=== PATIENT | female | born 1940 | race Caucasian/White ===

== ENCOUNTER → 2016-12-25 | Outpatient (CLI) | payer MEDICARE, OTHER ==
--- NOTE | 2016-12-25 11:39 | ECGEPIP ---
Stationary ECG Study [facility] Test Date: 2016-12-25 Pat Name: AUBREY TRIPATHI Department: Room: - Gender: F Account Manager B2B: YG : 1940 Requested By: Miguel Ford Order Number: [id number] Reading MD: Yolis Coreas Measurements Intervals [place] Rate: 76 P: 82 GA: 128 QRS: 51 QRSD: 82 T: -9 QT: 378 QTc: 426 Interpretive Statements SINUS RHYTHM ST T-WAVE ABNORMALITY NO PRIOR Electronically Signed On 12-25-2016 11:39:01 EST by Yolis Coreas
[2016-12-25 12:39] LABS: MEAN CORPUSCULAR HEMOGLOBIN 31.6 pg (27.0-33.0); MEAN CORPUSCULAR VOLUME 95.8 fl (80.0-96.0); RED CELL DISTRIBUTION WIDTH 12.5 % (11.5-14.5); WHITE BLOOD COUNT 4.6 K/mm3 (4.0-10.0)
--- NOTE | 2016-12-25 12:55 | REP ---
Chest two views HISTORY: Annual physical Comparison: 02/05/2012 The lungs are hyperinflated. The lungs are clear. The heart is normal in size. The pulmonary vasculature is normal in appearance. The bony structure is intact. IMPRESSION: No acute disease. Signed by Partha Mckinnon MD 12/25/2016 12:46 P
[2016-12-25 13:03] LABS: ALBUMIN 3.9 GM/DL (3.2-5.2); ALBUMIN/GLOBULIN RATIO 1.15 (1.00-1.93); ALKALINE PHOSPHATASE 66 U/L (45-117); ALT/SGPT 28 U/L (12-78); ANION GAP 7 MEQ/L (8-16); AST/SGOT 26 U/L (15-37); BILIRUBIN,TOTAL 0.5 MG/DL (0.2-1.0); BLOOD UREA NITROGEN 14 MG/DL (7-18); CALCIUM LEVEL 9.3 MG/DL (8.8-10.2); CARBON DIOXIDE LEVEL 33 MEQ/L (21-32); CHLORIDE LEVEL 104 MEQ/L (98-107); CHOLESTEROL LEVEL 181 MG/DL (<200); CREATININE FOR GFR 0.72 MG/DL (0.55-1.02); GLOMERULAR FILTRATION RATE > 60.0 (>39); GLUCOSE, FASTING 108 MG/DL (83-110); SODIUM LEVEL 144 MEQ/L (136-145); THYROXINE (T4) 14.3 UG/DL (4.5-12.0); TOTAL PROTEIN 7.3 GM/DL (6.4-8.2); TRIGLYCERIDES LEVEL 117 MG/DL (<150)
[2016-12-25 13:08] LABS: POTASSIUM SERUM 5.2 MEQ/L (3.5-5.1)
== END ==
LOC: M LAB 11:22
PROVIDERS: ATTEND Family Medicine
DX: I10 Essential (primary) hypertension (principal); E03.9 Hypothyroidism, unspecified

== ENCOUNTER → 2017-02-14 | Outpatient (CLI) | payer MEDICARE, OTHER ==
[2017-02-14 09:56] LABS: MEAN CORPUSCULAR HEMOGLOBIN 32.5 pg (27.0-33.0); MEAN CORPUSCULAR HGB CONC 32.8 g/dl (32.0-36.5); WHITE BLOOD COUNT 3.4 K/mm3 (4.0-10.0)
[2017-02-14 10:11] LABS: ALBUMIN 3.7 GM/DL (3.2-5.2); ALBUMIN/GLOBULIN RATIO 1.19 (1.00-1.93); ALKALINE PHOSPHATASE 57 U/L (45-117); ALT/SGPT 25 U/L (12-78); ANION GAP 7 MEQ/L (8-16); AST/SGOT 18 U/L (15-37); BILIRUBIN,TOTAL 0.7 MG/DL (0.2-1.0); BLOOD UREA NITROGEN 16 MG/DL (7-18); CALCIUM LEVEL 8.7 MG/DL (8.8-10.2); CARBON DIOXIDE LEVEL 33 MEQ/L (21-32); CHLORIDE LEVEL 103 MEQ/L (98-107); CHOLESTEROL LEVEL 179 MG/DL (<200); CREATININE FOR GFR 0.74 MG/DL (0.55-1.02); GLOMERULAR FILTRATION RATE > 60.0 (>39); GLUCOSE, FASTING 107 MG/DL (83-110); POTASSIUM SERUM 4.4 MEQ/L (3.5-5.1); SODIUM LEVEL 143 MEQ/L (136-145); TOTAL PROTEIN 6.8 GM/DL (6.4-8.2); TRIGLYCERIDES LEVEL 82 MG/DL (<150)
== END ==
LOC: M LAB 08:27
PROVIDERS: ATTEND Family Medicine
DX: R53.83 Other fatigue (principal); D64.9 Anemia, unspecified; Z79.899 Other long term (current) drug therapy

== ENCOUNTER → 2017-06-09 | Outpatient (CLI) | payer MEDICARE, OTHER ==
[~2017-06-09] VITALS: Ht 152.4 cm; Wt 42.6 kg
[~2017-06-09] MED LIST: CALTCHW5 PO; CARV3.12 PO; LIDOCAINE 2% INJ 100 MG/5 ML SDV (FOR ANES.) As Ordered ONE; NS 1,000 ML IV ONE; PRAV40TA2 PO; PROPOFOL 200 MG/20 ML VIAL As Ordered ONE; SYNT75TA PO; VITA-122 PO; VITA-182 PO
--- NOTE | 2017-06-09 13:56 | ROOR ---
Patient Name: Angelique Del Rosario Procedure Date: 06/09/2017 1:34 PM Date of : 1940 Age: 76 Room: [facility] Gender: Female Note Status: Finalized Procedure: Total Colonoscopy to cecum + Biopsy Polypectomy Indications: Colon cancer screening in patient at increased risk: Colorectal cancer in brother, Last colonoscopy: 2001 Providers: Jimmy Marcelo MD Referring MD: SOCORRO GREEN MD Requesting Provider: Medicines: Monitored Anesthesia Care Complications: No immediate complications. Procedure: Pre-Anesthesia Assessment: - The heart rate, respiratory rate, oxygen saturations, blood pressure, adequacy of pulmonary ventilation, and response to care were monitored throughout the procedure. The Colonoscope was introduced through the anus and advanced to the cecum, identified by appendiceal orifice and ileocecal valve. The colonoscopy was performed without difficulty. The patient tolerated the procedure well. The quality of the bowel preparation was excellent. Findings: The perianal and digital rectal examinations were normal. Non-bleeding internal hemorrhoids were found during retroflexion. The hemorrhoids were small and Grade I (internal hemorrhoids that do not prolapse). Scattered small-mouthed diverticula were found in the recto-sigmoid colon, sigmoid colon and descending colon. A small polyp was found at 35 cm proximal to the anus. The polyp was sessile. The polyp was removed with a cold biopsy forceps. Resection and retrieval were complete. The exam was otherwise without abnormality on direct and retroflexion views. Impression: - Non-bleeding internal hemorrhoids. - Diverticulosis in the recto-sigmoid colon, in the sigmoid colon and in the descending colon. - One small polyp at 35 cm proximal to the anus, removed with a cold biopsy forceps. Resected and retrieved. - The examination was otherwise normal on direct and retroflexion views. - The exam was otherwise normal to the cecum. Recommendation: - Patient has a contact number available for emergencies. The signs and symptoms of potential delayed complications were discussed with the patient. Return to normal activities tomorrow. Written discharge instructions were provided to the patient. - High fiber diet. - Continue present medications. - Await pathology results. - Discharge patient to home. - Repeat colonoscopy for symptoms only. - Telephone GI clinic for pathology results in 1 week. - Check Portal Online for Path Results.([email or web address]) - The findings and recommendations were discussed with the patient's family. Jimmy Marcelo MD Jimmy Marcelo MD 06/09/2017 1:56:02 PM This report has been signed electronically. Number of Addenda: 0 Note Initiated On: 06/09/2017 1:34 PM Estimated Blood Loss: Estimated blood loss: none.
[2017-06-09 13:57] VITALS: BP 98/61
== END | disposition home or self-care (01) ==
LOC: M OPP 11:44
PROVIDERS: ATTEND Internal Medicine Gastroenterology
DX: Z12.11 Encounter for screening for malignant neoplasm of colon (principal); D12.7 Benign neoplasm of rectosigmoid junction; K64.0 First degree hemorrhoids; K57.30 Diverticulosis of large intestine without perforation or abscess without bleeding; Z80.0 Family history of malignant neoplasm of digestive organs; I10 Essential (primary) hypertension; E78.5 Hyperlipidemia, unspecified; E03.9 Hypothyroidism, unspecified; K57.92 Diverticulitis of intestine, part unspecified, without perforation or abscess without bleeding; R21 Rash and other nonspecific skin eruption; Z79.899 Other long term (current) drug therapy; Z80.42 Family history of malignant neoplasm of prostate

== ENCOUNTER → 2018-07-30 | Outpatient (CLI) | payer MEDICARE, OTHER | LOC: M WHC 08:23 | DX: M81.0 Age-related osteoporosis without current pathological fracture (principal); Z78.0 Asymptomatic menopausal state | CPT/HCPCS: 77080 ==

== ENCOUNTER → 2019-02-18 | Outpatient (REF) | payer MEDICARE, OTHER ==
[~2019-02-18] MED LIST changes: -LIDOCAINE 2% INJ 100 MG/5 ML SDV (FOR ANES.) As Ordered ONE; -NS 1,000 ML IV ONE; -PROPOFOL 200 MG/20 ML VIAL As Ordered ONE
== END ==
LOC: M SFHCWAGY 11:35
PROVIDERS: ATTEND Nurse Practitioner Family
DX: Z12.4 Encounter for screening for malignant neoplasm of cervix (principal)

== ENCOUNTER 2020-12-20 14:57 | Emergency (ER) | payer MEDICARE, OTHER ==
[~2020-12-20] VITALS: Ht 152.4 cm; Wt 20.3 kg
--- OUTSIDE RECORDS SUMMARY | 2020-12-20 15:06 | CCD | Continuity of Care Document ---
Author Author Angelique GREEN M.D. Organization Unknown Address [address] [place] [id number] Phone [phone] Problems Active Problems Provider Date Essential hypertension Noble Green M.D. Onset: 2016 Hypothyroidism Noble Green M.D. Onset: 7 Hyperlipidemia Noble Green M.D. Onset: 7 Social History Type Date Description Comments Sex Unknown ETOH Use Denies alcohol use Tobacco Use Start: Unknown Patient has never smoked Recreational Drug Use Denies Drug Use Allergies, Adverse Reactions, Alerts Description No Known Drug Allergies Medications Active Medications SIG Qnty Indications Ordering Provide r Date Pravastatin Sodium 40mg Tablets Take 1 Tablet By Mouth Every Day 90tabs Noble Green M.D . 03/24/2017 Carvedilol 3.125mg Tablets Take 1 Tablet By Mouth Twice A Day 180tabs Noble Green M.D. 06/2017 Levothyroxine Sodium 75mcg Tablets Take 1 Tablet By Mouth Every Day 90tabs Noble Green M.D . 03/24/2017 Calcium + D3 [id number] Tablet s 1 by mouth qd Unknown Immunizations Description No Information Available Vital Signs Date Vital Result Comment 08/11/2020 9:30am BP Systolic 126 mmHg BP Diastolic 76 mmHg Body Temperature 98.4 F Heart Rate 72 /min Respiratory Rate 12 /min Height 59.50 inches 4'11.50" Weight 93.00 lb [place] Body Weight 100 lb BMI (Body Mass Index) 18.5 kg/m2 O2 % BldC Oximetry 96 % 09/21/2019 1:51pm BP Systolic 132 mmHg BP Diastolic 82 mmHg Body Temperature 98.0 F Heart Rate 66 /min Respiratory Rate 12 /min Height 59.50 inches 4'11.50" Weight 97.00 lb [place] Body Weight 100 lb BMI (Body Mass Index) 19.3 kg/m2 O2 % BldC Oximetry 96 % Results Test Acquired Date Facility Test Result H/L Range Note Laboratory test finding 08/11/2020 [facility] TSH 0.795 ulU/mL 0.60 - 4.8 CMP 08/11/2020 [facility] Glu 109 mg/dL 70 - 110 1 BUN 12 mg/dL 8 - 23 Creat 0.7 mg/dL 0.5 - 1.0 BUN/Creatinine Ratio 16.2 CALC Na 139 mmol/L 136 - 145 K 4.8 mmol/L 3.5 - 5.1 CL 101.5 mmol/L 98.0 - 107.0 Co2 27.6 mmol/L 22.0 - 29.0 CA 9.3 mg/dL 8.6 - 10.2 TP 6.5 g/dL Low 6.6 - 8.7 Alb 4.3 g/dL 3.4 - 4.8 A/G Ratio 1.9 CALC Globulin 2.2 CALC Alp 49.1 U/L 35 - 129 Alt (SGPT) 13 U/L 0 - 41 Ast (Sgot) 21 U/L 0 - 40 Tbili 0.50 mg/dL 0.0 - 1.2 Osmolality-Calculated 277.9 CALC Anion Gap 15 mmol/L eGFR 94 # Calc 2 eGFR Non-Afr. Cypriot 81 # Calc 3 Lipid Panel 08/11/2020 [facility] Chol 176 mg/dL 0 - 200 Trig 85 mg/dL 40 - 200 HDL 77 mg/dL High 45 - 65 LDL_C 82 Calc 75 - 129 Cho/HDL Ratio 2.3 Calc 1 CHRONIC KIDNEY DISEASE STAGI NG PER NKF: MALE GFR INTERPRETATION: 20-49 YRS: >60 mL/min Normal 50-59 YRS: >56 mL/min Normal 60-69 YRS: >49 mL/min Normal 70-79 YRS: >42 mL/min Normal 80 and above >35 mL/min Normal FEMALE GRF INTERPRETATION: 20-39 YRS: >60 mL/min Normal 40-49 YRS: >58 mL/min Normal 50-59 YRS: >51 mL/min Normal 60-69 YRS: >45 mL/min Normal 70-79 YRS: >39 mL/min Normal 80 and above >32 mL/min NormalCLASSIFICATION CHOLESTEROL FOR ADULTS CHILDREN/ADOLESCENTS* DESIRABLE: <200 MG/DL <170 MG/DL BORDER-LINE HIGH RISK: 200-239 MG/DL 170-199 MG/DL HIGH RISK: >240 MG/DL >200 MG/DL CLASS. FOR PRIMARY LDL CHOL PREVENTION: LDL CHOL-CHILD/ADOLESCENTS* DESIRABLE: <130 MG/DL <110 MG/DL BORDERLINE-HIGH RISK: 130-159 MG/DL 110-129 MG/DL HIGH RISK: >160 MG/DL >130 MG/DL *CHILDREN AND ADOLESCENTS REPRESENTS INDIVIDUALA AGED 2-19 YEARS EXCLUSIVE. 2 CKD-EPI 3 CKD-EPI Procedures Date Code Description Status 08/11/2020 38418 Removal Impacted Cerumen Irrigat ion/Lavage Unilateral Completed Medical Devices Description No Information Available Encounters Type Date Location Provider Dx Diagnosis Office Visit 11/21/2020 2:30p [facility] Noble Green M. D. Z01.810 Encounter for preprocedural cardiovascular examination Office Visit 08/11/2020 9:15a [facility] Noble Green M. D. I10 Essential (primary) hypertension E78.5 Hyperlipidemia, unspecified E03.9 Hypothyroidism, unspecified H61.21 Impacted cerumen, right ear Assessments Date Code Description Provider 11/21/2020 Z01.810 Encounter for preprocedural card iovascular examination Noble Green M.D. 08/11/2020 I10 Essential (primary) hypertension Noble Green M.D. 08/11/2020 E78.5 Hyperlipidemia, unspecified [facility] Noble coombs M.D. 08/11/2020 E03.9 Hypothyroidism, unspecified [facility] Noble coombs M.D. 08/11/2020 H61.21 Impacted cerumen, right ear [facility] Noble coombs M.D. Plan of Treatment Future Appointment(s):* 02/09/2021 9:15 am - Noble Green M.D. at [facility] Functional Status Description No Information Available Mental Status Description No Information Available Referrals Description No Information Available
--- OUTSIDE RECORDS SUMMARY | 2020-12-20 15:06 | CCD ---
Author Author [facility] Organization [facility] Address Unknown Phone Unavailable Care Team Providers Care Public Address Systems Mechanic Name Role Phone Matilda GREEN MD Unavailable Unavailable Matilda GREEN MD Unavailable Unavailable Matilda GREEN MD Unavailable Unavailable Matilda GREEN MD Unavailable Unavailable Matilda GREEN MD Unavailable Unavailable Matilda GREEN MD Unavailable Unavailable Matilda GREEN MD Unavailable Unavailable Matilda GREEN MD Unavailable Unavailable Matilda GREEN MD Unavailable Unavailable Matilda GREEN MD Unavailable Unavailable Matilda GREEN MD Unavailable Unavailable Matilda GREEN MD Unavailable Unavailable Matilda GREEN MD Unavailable Unavailable Matilda GREEN MD Unavailable Unavailable Matilda GREEN MD Unavailable Unavailable Matilda GREEN MD Unavailable Unavailable Matilda GREEN MD Unavailable Unavailable Matilda GREEN MD Unavailable Unavailable Matilda GREEN MD Unavailable Unavailable Matilda GREEN MD Unavailable Unavailable Matilda GREEN MD Unavailable Unavailable Matilda GREEN MD Unavailable Unavailable Matilda GREEN MD Unavailable Unavailable Matilda GREEN MD Unavailable Unavailable Matilda GREEN MD Unavailable Unavailable Matilda GREEN MD Unavailable Unavailable Matilda GREEN MD Unavailable Unavailable Matilda GREEN MD Unavailable Unavailable Matilda GREEN MD Unavailable Unavailable NORMA, H SOCORRO MD Unavailable Unavailable NORMA, H SOCORRO MD Unavailable Unavailable NORMA, H SOCORRO MD Unavailable Unavailable NORMA, H SOCORRO MD Unavailable Unavailable NORMA, H SOCORRO MD Unavailable Unavailable NORMA, H SOCORRO MD Unavailable Unavailable NORMA, H SOCORRO MD Unavailable Unavailable NORMA, H SOCORRO MD Unavailable Unavailable NORMA, H SOOCRRO MD Unavailable Unavailable NORMA, H SOCORRO MD Unavailable Unavailable NORMA, H SOCORRO MD Unavailable Unavailable NORMA, H SOCORRO MD Unavailable Unavailable NORMA, H SOCORRO MD Unavailable Unavailable NORMA, H SOCORRO MD Unavailable Unavailable NORMA, H SOCORRO MD Unavailable Unavailable NORMA, H SOCORRO MD Unavailable Unavailable NORMA, H SOCORRO MD Unavailable Unavailable NORMA, H SOCORRO MD Unavailable Unavailable NORMA, H SOCORRO MD Unavailable Unavailable NORMA, H SOCORRO MD Unavailable Unavailable NORMA, H SOCORRO MD Unavailable Unavailable NORMA, H SOCRORO MD Unavailable Unavailable NORMA, H SOCORRO MD Unavailable Unavailable NORMA, H SOCORRO MD Unavailable Unavailable NORMA, H SOCORRO MD Unavailable Unavailable NORMA, H SOCORRO MD Unavailable Unavailable NORMA, H SOCORRO MD Unavailable Unavailable NORMA, H SOCORRO MD Unavailable Unavailable NORMA, H SOCORRO MD Unavailable Unavailable NORMA, H SOCORRO MD Unavailable Unavailable NORMA, H SOCORRO MD Unavailable Unavailable NORMA, H SOCORRO MD Unavailable Unavailable NORMA, H SOCORRO MD Unavailable Unavailable NORMA, H SOCORRO MD Unavailable Unavailable NORMA, H SOCORRO MD Unavailable Unavailable NORMA, H SOCORRO MD Unavailable Unavailable NORMA, H SOCORRO MD Unavailable Unavailable NORMA, H SOCORRO MD Unavailable Unavailable NORMA, H SOCORRO MD Unavailable Unavailable NORMA, H SOCORRO MD Unavailable Unavailable NORMA, H SOCORRO MD Unavailable Unavailable NORMA, H SOCORRO MD Unavailable Unavailable NORMA, H SOCORRO MD Unavailable Unavailable NORMA, H SOCORRO MD Unavailable Unavailable NORMA, H SOCORRO MD Unavailable Unavailable NORMA, H SOCORRO MD Unavailable Unavailable NORMA, H SOCORRO MD Unavailable Unavailable Fany Thakkar MD Unavailable Unavailable Fany Thakkar MD Unavailable Unavailable Fany Thakkar MD Unavailable Unavailable Fany Thakkar MD Unavailable Unavailable Fany Thakkar MD Unavailable Unavailable Fany Thakkar MD Unavailable Unavailable Fany Thakkar MD Unavailable Unavailable Fany Thakkar MD Unavailable Unavailable Fany Thakkar MD Unavailable Unavailable Fany Thakkar MD Unavailable Unavailable Fany Thakkar MD Unavailable Unavailable Fany Thakkar MD Unavailable Unavailable Fany Thakkar MD Unavailable Unavailable Fany Thakkar MD Unavailable Unavailable Fany Thakkar MD Unavailable Unavailable Fany Thakkar MD Unavailable Unavailable Fany Thakkar MD Unavailable Unavailable Fany Thakkar MD Unavailable Unavailable Fany Thakkar MD Unavailable Unavailable Fany Thakkar MD Unavailable Unavailable Fany Thakkar MD Unavailable Unavailable Fany Thakkar MD Unavailable Unavailable Bijan, Noaman MD Unavailable Unavailable Bijan, Noaman MD Unavailable Unavailable Bijan, Noaman MD Unavailable Unavailable Bijan, Noaman MD Unavailable Unavailable Bijan, Noaman MD Unavailable Unavailable Bijan, Noaman MD Unavailable Unavailable Bijan, Noaman MD Unavailable Unavailable LETTIERE, A EVAN PA Unavailable Unavailable LETTIERE, A EVAN PA Unavailable Unavailable LETTIERE, A EVAN PA Unavailable Unavailable LETTIERE, A EVAN PA Unavailable Unavailable LETTIERE, A EVAN PA Unavailable Unavailable LETTIERE, A EVAN PA Unavailable Unavailable LETTIERE, A EVAN PA Unavailable Unavailable LETTIERE, A EVAN PA Unavailable Unavailable LETTIERE, A EVAN PA Unavailable Unavailable LETTIERE, A EVAN PA Unavailable Unavailable LETTIERE, A EVAN PA Unavailable Unavailable LETTIERE, A EVAN PA Unavailable Unavailable LETTIERE, A EVAN PA Unavailable Unavailable LETTIERE, A EVAN PA Unavailable Unavailable LETTIERE, A EVAN PA Unavailable Unavailable LETTIERE, A EVAN PA Unavailable Unavailable LETTIERE, A EVAN PA Unavailable Unavailable LETTIERE, A EVAN PA Unavailable Unavailable LETTIERE, A EVAN PA Unavailable Unavailable LETTIERE, A EVAN PA Unavailable Unavailable LETTIERE, A EVAN PA Unavailable Unavailable LETTIERE, A EVAN PA Unavailable Unavailable LETTIERE, A EVAN PA Unavailable Unavailable LETTIERE, A EVAN PA Unavailable Unavailable LETTIERE, A EVAN PA Unavailable Unavailable LETTIERE, A EVAN PA Unavailable Unavailable LETTIERE, A EVAN PA Unavailable Unavailable LETTIERE, A EVAN PA Unavailable Unavailable LETTIERE, A EVAN PA Unavailable Unavailable NO, PCP Unavailable Unavailable Re-disclosure Warning The records that you are about to access may contain information from federally-assisted alcohol or drug abuse programs. If such information is present, then the following federally mandated warning applies: This information has been disclosed to you from records protected by federal confidentiality rules (42 CFR part 2). The federal rules prohibit you from making any further disclosure of this information unless further disclosure is expressly permitted by the written consent of the person to whom it pertains or as otherwise permitted by 42 CFR part 2. A general authorization for the release of medical or other information is NOT sufficient for this purpose. The Federal rules restrict any use of the information to criminally investigate or prosecute any alcohol or drug abuse patient.The records that you are about to access may contain highly sensitive health information, the redisclosure of which is protected by Article 27-F of the [place] Public Health law. If you continue you may have access to information: Regarding HIV / AIDS; Provided by facilities licensed or operated by the [facility] Office of Mental Health; or Provided by the [facility] Office for People With Developmental Disabilities. If such information is present, then the following [facility] mandated warning applies: This information has been disclosed to you from confidential records which are protected by state law. State law prohibits you from making any further disclosure of this information without the specific written consent of the person to whom it pertains, or as otherwise permitted by law. Any unauthorized further disclosure in violation of state law may result in a fine or assisted sentence or both. A general authorization for the release of medical or other information is NOT sufficient authorization for further disc losure. Allergies and Adverse Reactions Type Description Substance Reaction Status Data Source(s ) No Known Drug Allergies No Known Drug Allergies Health [facility] No Known Environmental Allergies No Known Environmental Al lergies Health [facility] No Known Food Allergies No Known Food Allergies Health [facility] Family History Family Member Name Family Member Gender Family Member Status Date o f Status Description Data Source(s) Unknown Male Problem [facility] ([facility]) Unknown Unknown Problem [facility] ([facility], [facility]) mother,brother x 3 Encounters Encounter Providers Location Date Indications Data Source(s ) Outpatient Attender: Fany Thakkar MDConsultant: PCP NO 11/29/2020 09:45:00 AM EST - 11/29/2020 01:28:00 PM EST [facility] Patient discharged. Outpatient Attender: Fany Thakkar MDConsultant: PCP NO 11/22/2020 08:29:02 AM EST - 11/22/2020 11:20:00 AM EST [facility] Patient discharged. Outpatient Attender: SOCORRO Castillo Office 03/2021 01:30:00 PM EST [facility] ([facility] Outpatient Attender: SOCORRO Castillo Office 09:15:00 AM EDT [facility] ([facility] Outpatient Attender: EVAN cohn 11/30/2019 12:10:00 PM EST [facility] ([facility]) Medications Medication Brand Name Start Date Product Form Dose Route Admi nistrative Instructions Pharmacy Instructions Status Indications Reaction Description Data Source(s) Mupirocin 0.02 MG/MG Topical Ointment Mupirocin 11/30/2019 12:00:00 AM EST active MED[facility] ([facility], [facility]) Amoxicillin 875 MG Oral Tablet Amoxicillin 11/30/2019 12:00:00 AM EST active [facility] ([facility], [facility]) Insurance Providers Payer name Policy type / Coverage type Policy ID Covered republican ID Covered republican's relationship to salazar Policy Salazar Plan Information MEDICARE PART A -O/P [id number] 18 [id number] ANSI-Commercial [id number] ANSI-Medicare Part B [id number] MEDICARE [id number] SP [id number] R [facility] [id number] SP [id number] MEDICARE [id number] SP [id number] R O [id number] S [id number] MEDICARE C [id number] S [id number] D [employer] [id number] SP [id number] MEDICARE [id number] SP [id number] D [place] Medigap Part B [id number] Self [id number] Medicare [place] Medicare Primary [id number] Self [id number] [place] Medigap Part B [id number] Self [id number] [place] Primary [id number] Self [id number] POMCO [id number] SP [id number] [place] Medigap Part B Self Medicare [place] Medicare Primary Self [employer] PPO S [id number] S [id number] D [id number] Problems, Conditions, and Diagnoses Code Display Name Description Problem Type Effective Dates Data Source(s) 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 Diagnosis 11/29/2020 09:45:00 AM [facility] [id number] Family history of ischemic h eart disease and other diseases of the circulatory system Family history of ischemic heart disease and other diseases of the circulatory system Diagnosis 11/29/2020 09:45:00 AM [facility] E039 Hypothyroidism, unspecified Hypothyroidism, unspecifie d Diagnosis 11/29/2020 09:45:00 AM [facility] 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 Diagnosis 11/29/2020 09:45:00 AM [facility] I10 Essential (primary) hypertension Essential (primary) h ypertension Diagnosis 11/29/2020 09:45:00 AM [facility] H259 Unspecified age-related cataract Unspecified age -related cataract Diagnosis 11/29/2020 09:45:00 AM [facility] [id number] Encounter for other preprocedural examin ation Encounter for other preprocedural examination Diagnosis 11/22/2020 11:00:00 AM [facility] Surgeries/Procedures Procedure Description Date Indications Data Source(s) Removal Impacted Cerumen Irrigation/Lavage Unilateral 08/11/2020 12:00:00 AM EDT [facility] ([facility] Results ID Date Data Source [id number] 12/07/2020 10:46:00 [place] [address] OPERATIVE SUMMARYNAME: DEUCE BURGOS DATE OF : 1940TTENDING PHYS: Fany Thakkar MD DATE: 11/29/20 MR#: [id number] OF PROCEDURE: 11/29/2020REOPERATIVE DIAGNOSIS: Cataract, right eye.POSTOPERATIVE DIAGNOSIS: Cataract, right eyePROCEDURE: Phacoemulsification with cataract removal with the help of ORA, IOL lens useAUOOTO 19 diopters.SURGEON: Fany Thakkar MD.BILLING CLERK: None.COMPLICATIONS: None.INDICATIONS: Decreased vision interfering with daily activities.DETAILS OF PROCEDURE:Patient was brought to the operating room and laid in the supine position. The eye was prepped anddraped in a sterile fashion for ophthalmic surgery, following which a lid speculum was placed. Aside port incision was made and Viscoat was injected into the anterior chamber. A cornea incisionwas made with a 2.4 mm Keratome, followed by a capsulorhexis. Higher dissection was carried outwith a balanced salt solution followed by phacoemulsification in a [id number] methodwithin the capsular bag. Excess cortical material was then aspirated using irrigation and aspirationcannula. Visco was then placed into the capsular bag and intraocular lens was inserted aftermultiple ORA calculations were reviewed and power was chosen. Intraocular lens used wasAUOOTO power 19 diopter. Excess Viscoelastic was then aspirated. The wound was hydrated.Intracameral antibiotics and subtenon steroid injections were given. The speculum was removedand the patient was returned to the recovery room in stable condition.DD: Fany Thakkar MD 12/07/20 10:31 1 [place] [address] OPERATIVE SUMMARYNAME: DEUCE BURGOS DATE OF : 1940TTENDING PHYS: Fany Thakkar MD DATE: 11/29/20 MR#: [id number]: SSR 12/07/20 10:45DS: Fany Thakkar MD 12/18/20 13:41 2 Name Value Range Interpretation Code Description Data Maribel rce(s) Supporting Document(s) ID Date Data Source [id number] 11/24/2020 11:10:00 AM EST [facility] Name Value Range Interpretation Code Description Data Maribel rce(s) Supporting Document(s) SARS-CoV-2 (COVID-19) Negative [facility] This lab was ordered by [facility] and reported by [facility]. ID Date Data Source [id number] 08/11/2020 09:41:00 AM EDT [facility] ([facility] Name Value Range Interpretation Code Description Data Maribel rce(s) Supporting Document(s) Thyrotropin [Units/volume] in Serum or Plasma 0.795 ulU/mL 0.60-4.8 [facility] ([facility] ID Date Data Source [id number] 08/11/2020 09:40:00 AM EDT JOHN ([facility] Name Value Range Interpretation Code Description Data Maribel rce(s) Supporting Document(s) Trig 85 mg/dL 40-200 JOHN ([facility] CHRONIC KIDNEY DISEASE STAGING PER NKF: MALE GFR INTERPRETATION: 20-49 YRS: [...] DESIRABLE: <130 MG/DL <110 MG/DL BORDERLINE-HIGH RISK: 130- 159 MG/DL 110-129 MG/DL HIGH RISK: >160 MG/DL >130 MG/DL *CHILDREN AND ADOLESCENTS REPRESENTS INDIVIDUALA AGED 2-19 YEARS EXCLUSIVE. Chol 176 mg/dL 0-200 [facility] ([facility] CHRONIC KIDNEY DISEASE STAGING PER NKF: MALE GFR INTERPRETATION: 20-49 YRS: [...] DESIRABLE: <130 MG/DL <110 MG/DL BORDERLINE-HIGH RISK: 130- 159 MG/DL 110-129 MG/DL HIGH RISK: >160 MG/DL >130 MG/DL *CHILDREN AND ADOLESCENTS REPRESENTS INDIVIDUALA AGED 2-19 YEARS EXCLUSIVE. Cholesterol in HDL [Mass/volume] in Serum or Plasma 77 mg/dL 45-65 Above high normal [facility] ([facility] ) CHRONIC KIDNEY DISEASE STAGING PER NKF: MALE GFR INTERPRETATION: 20-49 YRS: [...] DESIRABLE: <130 MG/DL <110 MG/DL BORDERLINE-HIGH RISK: 130- 159 MG/DL 110-129 MG/DL HIGH RISK: >160 MG/DL >130 MG/DL *CHILDREN AND ADOLESCENTS REPRESENTS INDIVIDUALA AGED 2-19 YEARS EXCLUSIVE. LDL_C 82 Calc 75-129 [facility] CHRONIC KIDNEY DISEASE STAGING PER NKF: MALE GFR INTERPRETATION: 20-49 YRS: [...] DESIRABLE: <130 MG/DL <110 MG/DL BORDERLINE-HIGH RISK: 130- 159 MG/DL 110-129 MG/DL HIGH RISK: >160 MG/DL >130 MG/DL *CHILDREN AND ADOLESCENTS REPRESENTS INDIVIDUALA AGED 2-19 YEARS EXCLUSIVE. Cho/HDL Ratio 2.3 Calc [facility] ([facility] CHRONIC KIDNEY DISEASE STAGING PER NKF: MALE GFR INTERPRETATION: 20-49 YRS: [...] DESIRABLE: <130 MG/DL <110 MG/DL BORDERLINE-HIGH RISK: 130- 159 MG/DL 110-129 MG/DL HIGH RISK: >160 MG/DL >130 MG/DL *CHILDREN AND ADOLESCENTS REPRESENTS INDIVIDUALA AGED 2-19 YEARS EXCLUSIVE. ID Date Data Source [id number] 08/11/2020 09:40:00 AM EDT [facility] ([facility] Name Value Range Interpretation Code Description Data Maribel rce(s) Supporting Document(s) Creat 0.7 mg/dL 0.5-1.0 JOHN ([facility] CHRONIC KIDNEY DISEASE STAGING PER NKF: MALE GFR INTERPRETATION: 20-49 YRS: [...] DESIRABLE: <130 MG/DL <110 MG/DL BORDERLINE-HIGH RISK: 130- 159 MG/DL 110-129 MG/DL HIGH RISK: >160 MG/DL >130 MG/DL *CHILDREN AND ADOLESCENTS REPRESENTS INDIVIDUALA AGED 2-19 YEARS EXCLUSIVE. Glu 109 mg/dL 70-110 JOHN ([facility] CHRONIC KIDNEY DISEASE STAGING PER NKF: MALE GFR INTERPRETATION: 20-49 YRS: [...] DESIRABLE: <130 MG/DL <110 MG/DL BORDERLINE-HIGH RISK: 130- 159 MG/DL 110-129 MG/DL HIGH RISK: >160 MG/DL >130 MG/DL *CHILDREN AND ADOLESCENTS REPRESENTS INDIVIDUALA AGED 2-19 YEARS EXCLUSIVE. BUN 12 mg/dL 8-23 [facility] CHRONIC KIDNEY DISEASE STAGING PER NKF: MALE GFR INTERPRETATION: 20-49 YRS: [...] DESIRABLE: <130 MG/DL <110 MG/DL BORDERLINE-HIGH RISK: 130- 159 MG/DL 110-129 MG/DL HIGH RISK: >160 MG/DL >130 MG/DL *CHILDREN AND ADOLESCENTS REPRESENTS INDIVIDUALA AGED 2-19 YEARS EXCLUSIVE. Na 139 mmol/L 136-145 [facility] ([facility] CHRONIC KIDNEY DISEASE STAGING PER NKF: MALE GFR INTERPRETATION: 20-49 YRS: [...] DESIRABLE: <130 MG/DL <110 MG/DL BORDERLINE-HIGH RISK: 130- 159 MG/DL 110-129 MG/DL HIGH RISK: >160 MG/DL >130 MG/DL *CHILDREN AND ADOLESCENTS REPRESENTS INDIVIDUALA AGED 2-19 YEARS EXCLUSIVE. K 4.8 mmol/L 3.5-5.1 [facility] CHRONIC KIDNEY DISEASE STAGING PER NKF: MALE GFR INTERPRETATION: 20-49 YRS: [...] DESIRABLE: <130 MG/DL <110 MG/DL BORDERLINE-HIGH RISK: 130- 159 MG/DL 110-129 MG/DL HIGH RISK: >160 MG/DL >130 MG/DL *CHILDREN AND ADOLESCENTS REPRESENTS INDIVIDUALA AGED 2-19 YEARS EXCLUSIVE. BUN/Creatinine Ratio 16.2 CALC [facility] ([facility] CHRONIC KIDNEY DISEASE STAGING PER NKF: MALE GFR INTERPRETATION: 20-49 YRS: [...] DESIRABLE: <130 MG/DL <110 MG/DL BORDERLINE-HIGH RISK: 130- 159 MG/DL 110-129 MG/DL HIGH RISK: >160 MG/DL >130 MG/DL *CHILDREN AND ADOLESCENTS REPRESENTS INDIVIDUALA AGED 2-19 YEARS EXCLUSIVE. CA 9.3 mg/dL 8.6-10.2 [facility] ([facility] CHRONIC KIDNEY DISEASE STAGING PER NKF: MALE GFR INTERPRETATION: 20-49 YRS: [...] DESIRABLE: <130 MG/DL <110 MG/DL BORDERLINE-HIGH RISK: 130- 159 MG/DL 110-129 MG/DL HIGH RISK: >160 MG/DL >130 MG/DL *CHILDREN AND ADOLESCENTS REPRESENTS INDIVIDUALA AGED 2-19 YEARS EXCLUSIVE. CL 101.5 mmol/L 98.0-107.0 [facility] CHRONIC KIDNEY DISEASE STAGING PER NKF: MALE GFR INTERPRETATION: 20-49 YRS: [...] DESIRABLE: <130 MG/DL <110 MG/DL BORDERLINE-HIGH RISK: 130- 159 MG/DL 110-129 MG/DL HIGH RISK: >160 MG/DL >130 MG/DL *CHILDREN AND ADOLESCENTS REPRESENTS INDIVIDUALA AGED 2-19 YEARS EXCLUSIVE. Co2 27.6 mmol/L 22.0-29.0 [facility] ([facility] CHRONIC KIDNEY DISEASE STAGING PER NKF: MALE GFR INTERPRETATION: 20-49 YRS: [...] DESIRABLE: <130 MG/DL <110 MG/DL BORDERLINE-HIGH RISK: 130- 159 MG/DL 110-129 MG/DL HIGH RISK: >160 MG/DL >130 MG/DL *CHILDREN AND ADOLESCENTS REPRESENTS INDIVIDUALA AGED 2-19 YEARS EXCLUSIVE. TP 6.5 g/dL 6.6-8.7 Below low normal [facility] ( [facility] CHRONIC KIDNEY DISEASE STAGING PER NKF: MALE GFR INTERPRETATION: 20-49 YRS: [...] DESIRABLE: <130 MG/DL <110 MG/DL BORDERLINE-HIGH RISK: 130- 159 MG/DL 110-129 MG/DL HIGH RISK: >160 MG/DL >130 MG/DL *CHILDREN AND ADOLESCENTS REPRESENTS INDIVIDUALA AGED 2-19 YEARS EXCLUSIVE. A/G Ratio 1.9 CALC [facility] ([facility] CHRONIC KIDNEY DISEASE STAGING PER NKF: MALE GFR INTERPRETATION: 20-49 YRS: [...] DESIRABLE: <130 MG/DL <110 MG/DL BORDERLINE-HIGH RISK: 130- 159 MG/DL 110-129 MG/DL HIGH RISK: >160 MG/DL >130 MG/DL *CHILDREN AND ADOLESCENTS REPRESENTS INDIVIDUALA AGED 2-19 YEARS EXCLUSIVE. Alb 4.3 g/dL 3.4-4.8 [facility] ([facility] CHRONIC KIDNEY DISEASE STAGING PER NKF: MALE GFR INTERPRETATION: 20-49 YRS: [...] DESIRABLE: <130 MG/DL <110 MG/DL BORDERLINE-HIGH RISK: 130- 159 MG/DL 110-129 MG/DL HIGH RISK: >160 MG/DL >130 MG/DL *CHILDREN AND ADOLESCENTS REPRESENTS INDIVIDUALA AGED 2-19 YEARS EXCLUSIVE. Globulin 2.2 CALC [facility] ([facility] CHRONIC KIDNEY DISEASE STAGING PER NKF: MALE GFR INTERPRETATION: 20-49 YRS: [...] DESIRABLE: <130 MG/DL <110 MG/DL BORDERLINE-HIGH RISK: 130- 159 MG/DL 110-129 MG/DL HIGH RISK: >160 MG/DL >130 MG/DL *CHILDREN AND ADOLESCENTS REPRESENTS INDIVIDUALA AGED 2-19 YEARS EXCLUSIVE. Ast (Sgot) 21 U/L 0-40 [facility] ([facility] CHRONIC KIDNEY DISEASE STAGING PER NKF: MALE GFR INTERPRETATION: 20-49 YRS: [...] DESIRABLE: <130 MG/DL <110 MG/DL BORDERLINE-HIGH RISK: 130- 159 MG/DL 110-129 MG/DL HIGH RISK: >160 MG/DL >130 MG/DL *CHILDREN AND ADOLESCENTS REPRESENTS INDIVIDUALA AGED 2-19 YEARS EXCLUSIVE. Alp 49.1 U/L 35-129 [facility] CHRONIC KIDNEY DISEASE STAGING PER NKF: MALE GFR INTERPRETATION: 20-49 YRS: [...] DESIRABLE: <130 MG/DL <110 MG/DL BORDERLINE-HIGH RISK: 130- 159 MG/DL 110-129 MG/DL HIGH RISK: >160 MG/DL >130 MG/DL *CHILDREN AND ADOLESCENTS REPRESENTS INDIVIDUALA AGED 2-19 YEARS EXCLUSIVE. Alt (SGPT) 13 U/L 0-41 [facility] CHRONIC KIDNEY DISEASE STAGING PER NKF: MALE GFR INTERPRETATION: 20-49 YRS: [...] DESIRABLE: <130 MG/DL <110 MG/DL BORDERLINE-HIGH RISK: 130- 159 MG/DL 110-129 MG/DL HIGH RISK: >160 MG/DL >130 MG/DL *CHILDREN AND ADOLESCENTS REPRESENTS INDIVIDUALA AGED 2-19 YEARS EXCLUSIVE. Anion Gap 15 mmol/L [facility] CHRONIC KIDNEY DISEASE STAGING PER NKF: MALE GFR INTERPRETATION: 20-49 YRS: [...] DESIRABLE: <130 MG/DL <110 MG/DL BORDERLINE-HIGH RISK: 130- 159 MG/DL 110-129 MG/DL HIGH RISK: >160 MG/DL >130 MG/DL *CHILDREN AND ADOLESCENTS REPRESENTS INDIVIDUALA AGED 2-19 YEARS EXCLUSIVE. Tbili 0.50 mg/dL 0.0-1.2 [facility] ([facility] CHRONIC KIDNEY DISEASE STAGING PER NKF: MALE GFR INTERPRETATION: 20-49 YRS: [...] DESIRABLE: <130 MG/DL <110 MG/DL BORDERLINE-HIGH RISK: 130- 159 MG/DL 110-129 MG/DL HIGH RISK: >160 MG/DL >130 MG/DL *CHILDREN AND ADOLESCENTS REPRESENTS INDIVIDUALA AGED 2-19 YEARS EXCLUSIVE. Osmolality-Calculated 277.9 CALC [facility] ([facility] CHRONIC KIDNEY DISEASE STAGING PER NKF: MALE GFR INTERPRETATION: 20-49 YRS: [...] DESIRABLE: <130 MG/DL <110 MG/DL BORDERLINE-HIGH RISK: 130- 159 MG/DL 110-129 MG/DL HIGH RISK: >160 MG/DL >130 MG/DL *CHILDREN AND ADOLESCENTS REPRESENTS INDIVIDUALA AGED 2-19 YEARS EXCLUSIVE. eGFR Non-Afr. Macedonian 81 # [facility] ([facility] CHRONIC KIDNEY DISEASE STAGING PER NKF: MALE GFR INTERPRETATION: 20-49 YRS: [...] DESIRABLE: <130 MG/DL <110 MG/DL BORDERLINE-HIGH RISK: 130- 159 MG/DL 110-129 MG/DL HIGH RISK: >160 MG/DL >130 MG/DL *CHILDREN AND ADOLESCENTS REPRESENTS INDIVIDUALA AGED 2-19 YEARS EXCLUSIVE. eGFR 94 # JOHN ( [facility] CHRONIC KIDNEY DISEASE STAGING PER NKF: MALE GFR INTERPRETATION: 20-49 YRS: [...] DESIRABLE: <130 MG/DL <110 MG/DL BORDERLINE-HIGH RISK: 130- 159 MG/DL 110-129 MG/DL HIGH RISK: >160 MG/DL >130 MG/DL *CHILDREN AND ADOLESCENTS REPRESENTS INDIVIDUALA AGED 2-19 YEARS EXCLUSIVE. Procedure Vital Signs ID Date Data Source UNK Name Value Range Interpretation Code Description Data Source(s) Oxygen saturation in Arterial blood by Pulse oximetry 95 % 95 % JOHN ([facility] Body mass index (BMI) [Ratio] 19.2 kg/m2 19.2 k g/m2 MEDGRAEME ([facility] [place] body weight 100 [lb_av] 100 [lb_av] MEDEN T ([facility] Body weight 96.50 [lb_av] 96.50 [lb_av] MEDENT ([facility] Body height 59.50 [in_i] 59.50 [in_i] MEDENT ([facility] 4'11.50" Respiratory rate 12 /min 12 /min MEDENT ( [facility] Heart rate 54 /min 54 /min MEDENT ([facility] Body temperature 98.4 [degF] 98.4 [degF] MEDENT ([facility] Diastolic blood pressure 78 mm[Hg] 78 mm[Hg] MEDENT ([facility] Systolic blood pressure 122 mm[Hg] 122 mm[Hg] M EDENT ([facility] Oxygen saturation in Arterial blood by Pulse oximetry 96 % 96 % MEDENT ([facility] Body mass index (BMI) [Ratio] 18.5 kg/m2 18.5 k g/m2 MEDENT ([facility] [place] body weight 100 [lb_av] 100 [lb_av] MEDEN T ([facility] Body weight 93.00 [lb_av] 93.00 [lb_av] MEDENT ([facility] Body height 59.50 [in_i] 59.50 [in_i] MEDENT ([facility] 4'11.50" Respiratory rate 12 /min 12 /min MEDENT ( [facility] Heart rate 72 /min 72 /min MEDENT ([facility] Body temperature 98.4 [degF] 98.4 [degF] MEDENT ([facility] Diastolic blood pressure 76 mm[Hg] 76 mm[Hg] MEDENT ([facility] Systolic blood pressure 126 mm[Hg] 126 mm[Hg] M EDENT ([facility] Body mass index (BMI) [Ratio] 19.5 kg/m2 19.5 k g/m2 [facility] ([facility], [facility]) Body height 60 [in_i] 60 [in_i] [facility] ([facility], [facility]) 5'0" Body weight 100.00 [lb_av] 100.00 [lb_av] MEDEN T ([facility], [facility]) Body temperature 97.9 [degF] 97.9 [degF] [facility] ([facility], [facility]) Oxygen saturation in Arterial blood by Pulse oximetry 98 % 98 % [facility] ([facility], [facility]) Respiratory rate 17 /min 17 /min [facility] ( [facility], [facility]) Heart rate 76 /min 76 /min [facility] ([facility], [facility]) Diastolic blood pressure 86 mm[Hg] 86 mm[Hg] [facility] ([facility], [facility]) Systolic blood pressure 130 mm[Hg] 130 mm[Hg] M [facility] ([facility], [facility]) ID Date Data Source [id number] 12/18/2020 01:42:02 PM EST Health System Name Value Range Interpretation Code Description Data Source(s) WEIGHT RECORDED 97.00 pounds 097.00 pounds [facility] Height 60 Inches 060 Inches [facility]
--- OUTSIDE RECORDS SUMMARY | 2020-12-20 15:06 | CCD | Continuity of Care Document ---
Author Author Angelique GREEN M.D. Organization Unknown Address [address] [place], [place] [address] Phone [phone] Problems Active Problems Provider Date Essential hypertension [...] Green M.D . 03/24/2017 Calcium + D3 [id number] Tablet s 1 by mouth qd Unknown Immunizations Description No Information Available Vital Signs Date Vital Result Comment 11/21/2020 2:41pm BP Systolic 122 mmHg BP Diastolic 78 mmHg Body Temperature 98.4 F Heart Rate 54 /min Respiratory Rate 12 /min Height 59.50 inches 4'11.50" Weight 96.50 lb [place] Body Weight 100 lb BMI (Body Mass Index) 19.2 kg/m2 O2 % BldC Oximetry 95 % 08/11/2020 9:30am BP Systolic 126 mmHg BP Diastolic 76 mmHg Body Temperature 98.4 F Heart Rate 72 /min Respiratory Rate 12 /min Height 59.50 inches 4'11.50" Weight 93.00 lb [place] Body Weight 100 lb BMI (Body Mass [...] eGFR 94 # Calc 2 eGFR Non-Afr. Citizen Of [place] 81 # Calc 3 Lipid Panel 08/11/2020 [...] CKD-EPI Procedures Date Code Description Status 08/11/2020 04438 Removal Impacted Cerumen Irrigat ion/Lavage Unilateral Completed Medical Devices Description No Information Available Encounters Type Date Location Provider Dx Diagnosis Office Visit 11/21/2020 2:30p [facility] Noble Green M. D. Z01.810 Encounter for preprocedural cardiovascular examination Office Visit 08/11/2020 9:15a [facility] Noble Green M. D. I10 Essential (primary) hypertension E78.5 Hyperlipidemia, unspecified E03.9 Hypothyroidism, unspecified H61.21 Impacted cerumen, right ear Assessments Date Code Description Provider 11/21/2020 Z01.810 Encounter for preprocedural card iovascular examination Noble Green M.D. 08/11/2020 I10 Essential (primary) hypertension Noble Green M.D. 08/11/2020 E78.5 Hyperlipidemia, unspecified [facility] Noble coombs M.D. 08/11/2020 E03.9 Hypothyroidism, unspecified [facility] Noble coombs M.D. 08/11/2020 H61.21 Impacted cerumen, right ear [facility] Noble coombs M.D. Plan of Treatment Future Appointment(s):* 02/09/2021 9:15 am - Noble Green M.D. at [facility] Functional Status Description No Information Available Mental Status Description No Information Available Referrals Description No Information Available
[2020-12-20] MEDS ORDERED: BOOSTRIX/ADACEL VACCINE (DIPHTH/PERTUSS/ACELL/TETANUS) 0.5ML SYR IM ONE (15:30)
--- OUTSIDE RECORDS SUMMARY | 2020-12-20 15:48 | CCD ---
Author Author [facility] Organization [facility] Address Unknown Phone Unavailable Care Team Providers Care Mixer Blender Name Role Phone Matilda GREEN MD Unavailable [...] Unavailable Fany Thakkar MD Unavailable Unavailable Fany Tahkkar MD Unavailable Unavailable Fany Thakkar MD Unavailable Unavailable Fany Thakkar MD Unavailable Unavailable Fany Thakkar MD Unavailable Unavailable Fany Thakkar MD Unavailable Unavailable Fany Thakkar MD Unavailable Unavailable Fany Thakkar MD Unavailable Unavailable Fany Thakkar MD Unavailable Unavailable Fany Thakkar MD Unavailable Unavailable Fany Thakkar MD Unavailable Unavailable Fany Thakkar MD Unavailable Unavailable Fany Thakakr MD Unavailable Unavailable Fany Thakkar MD Unavailable [...] is protected by Article 27-F of the [place] Public Health law. If you continue you may have access to information: Regarding HIV / AIDS; Provided by facilities licensed or operated by the [facility] Office of Mental Health; or Provided by the [facility] Office for People With Developmental Disabilities. If such information is present, then the following [facility] mandated warning applies: This information has [...] law may result in a fine or longterm sentence or both. A general authorization for the release of medical or other information is NOT sufficient authorization for further disc losure. Allergies and Adverse Reactions Type Description Substance Reaction Status Data Source(s ) No Known Drug Allergies No Known Drug Allergies [facility] No Known Environmental Allergies No Known Environmental Al lergies [facility] No Known Food Allergies No Known Food Allergies [facility] Family History Family Member Name Family Member Gender Family Member Status Date o f Status Description Data Source(s) Unknown Male Problem [facility] Unknown Unknown Problem [facility] ([facility]) mother,brother x 3 Encounters Encounter Providers Location Date Indications Data Source(s ) Outpatient Attender: Fany Thakkar MDConsultant: PCP NO 11/29/2020 09:45:00 AM EST - 11/29/2020 01:28:00 PM EST [facility] Patient discharged. Outpatient Attender: Fany Thakkar MDConsultant: PCP NO 11/22/2020 08:29:02 AM EST - 11/22/2020 11:20:00 AM EST [facility] Patient discharged. Outpatient Attender: SOCORRO Castillo Office 03/2021 01:30:00 PM EST [facility] ([facility] Outpatient Attender: SOCORRO Castillo Office 09:15:00 AM EDT MEDENT ([facility] Outpatient Attender: EVAN cohn 11/30/2019 12:10:00 PM EST MEDENT ([facility]) Medications Medication Brand Name Start Date Product Form Dose Route Admi nistrative Instructions Pharmacy Instructions Status Indications Reaction Description Data Source(s) Mupirocin 0.02 MG/MG Topical Ointment Mupirocin 11/30/2019 12:00:00 AM EST active MEDENT ([facility]) Amoxicillin 875 MG Oral Tablet Amoxicillin 11/30/2019 12:00:00 AM EST active MEDENT ([facility]) Insurance Providers Payer name Policy type / Coverage type Policy ID Covered libertarian ID Covered libertarian's relationship to salazar Policy Salazar Plan Information MEDICARE PART A -O/P [id number] 18 [id number] ANSI-Commercial [id number] ANSI-Medicare Part B [id number] MEDICARE [id number] SP [id number] R [facility] [id number] SP [id number] MEDICARE [id number] SP [id number] R O [id number] S [id number] MEDICARE C [id number] S [id number] D [place] [id number] SP [id number] MEDICARE [id number] SP [id number] D [place] Medigap Part B [id number] Self [id number] Medicare [place] Gov[place] Serv[place] Medicare Primary [id number] Self [id number] [place] Medigap Part B [id number] Self [id number] [place] Primary [id number] Self [id number] [place] [id number] SP [id number] [place] Medigap Part B Self Medicare [place] Primary Self [place] PPO S [id number] S [id number] D [id number] Problems, Conditions, and Diagnoses Code Display Name Description Problem Type Effective Dates Data Source(s) 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 O ther fpc (current) drug therapy Diagnosis 11/29/2020 09:45:00 AM [facility] Z8249 Family history of ischemic h eart disease and other diseases of the circulatory system Family history of ischemic heart disease and other diseases of the circulatory system Diagnosis 11/29/2020 09:45:00 AM [facility] E039 Hypothyroidism, unspecified Hypothyroidism, unspecifie d Diagnosis 11/29/2020 09:45:00 AM [facility] 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 Diagnosis 11/29/2020 09:45:00 AM [facility] I10 Essential (primary) hypertension Essential (primary) h ypertension Diagnosis 11/29/2020 09:45:00 AM [facility] H259 Unspecified age-related cataract Unspecified age -related cataract Diagnosis 11/29/2020 09:45:00 AM [facility] [id number] Encounter for other preprocedural examin ation Encounter for other preprocedural examination Diagnosis 11/22/2020 11:00:00 AM [facility] Surgeries/Procedures Procedure Description Date Indications Data Source(s) Removal Impacted Cerumen Irrigation/Lavage Unilateral 08/11/2020 12:00:00 AM EDT MEDGRAEME ([facility] Results ID Date Data Source [id number] 12/07/2020 10:46:00 [place] [address] OPERATIVE SUMMARYNAME: DEUCE BURGOS DATE OF : 1940TTENDING PHYS: Fany Thakkar MD DATE: 11/29/20 MR#: [id number] OF PROCEDURE: 11/29/2020REOPERATIVE DIAGNOSIS: Cataract, right eye.POSTOPERATIVE DIAGNOSIS: Cataract, right eyePROCEDURE: Phacoemulsification with cataract removal with the help of ORA, IOL lens useAUOOTO 19 diopters.SURGEON: Fany Thakkar MD.RACING BOARD MARKER: None.COMPLICATIONS: None.INDICATIONS: Decreased vision interfering with daily [...] salt solution followed by phacoemulsification in a [id number] methodwithin the capsular bag. Excess cortical material [...] condition.DD: Fany Thakkar MD 12/07/20 10:31 1 [place] [address] OPERATIVE SUMMARYNAME: DEUCE BURGOS DATE OF : 1940TTENDING PHYS: Fany Thakkar MD DATE: 11/29/20 MR#: [id number]: SSR 12/07/20 10:45DS: Fany Thakkar MD 12/18/20 13:41 2 Name Value Range Interpretation Code Description Data Maribel rce(s) Supporting Document(s) ID Date Data Source [id number] 11/24/2020 11:10:00 AM EST [facility] Name Value Range Interpretation Code Description Data Maribel rce(s) Supporting Document(s) SARS-CoV-2 (COVID-19) Negative [facility] This lab was ordered by [facility] and reported by [facility]. ID Date Data Source [id number] 08/11/2020 09:41:00 AM EDT MEDENT ([facility] Name Value Range Interpretation Code Description Data Maribel rce(s) Supporting Document(s) Thyrotropin [Units/volume] in Serum or Plasma 0.795 ulU/mL 0.60-4.8 MEDENT ([facility] ID Date Data Source [id number] 08/11/2020 09:40:00 AM EDT JOHN ([facility] Name Value Range Interpretation Code Description Data Maribel rce(s) Supporting Document(s) Trig 85 mg/dL 40-200 JOHN (Count includes the [facility] CHRONIC KIDNEY DISEASE STAGING [...] YEARS EXCLUSIVE. Chol 176 mg/dL 0-200 MEDGRAEME ([facility] the [facility] CHRONIC KIDNEY DISEASE STAGING [...] YEARS EXCLUSIVE. Cho/HDL Ratio 2.3 Calc MEDENT ([facility] CHRONIC KIDNEY DISEASE STAGING PER [...] 2-19 YEARS EXCLUSIVE. ID Date Data Source [id number] 08/11/2020 09:40:00 AM EDT MEDGRAEME ([facility] Name Value Range [...] YEARS EXCLUSIVE. K 4.8 mmol/L 3.5-5.1 [facility] CHRONIC KIDNEY DISEASE STAGING [...] YEARS EXCLUSIVE. BUN/Creatinine Ratio 16.2 CALC MEDENT ([facility] CHRONIC KIDNEY DISEASE STAGING [...] 2-19 YEARS EXCLUSIVE. CL 101.5 mmol/L 98.0-107.0 [facility] CHRONIC KIDNEY DISEASE STAGING PER [...] 2-19 YEARS EXCLUSIVE. Co2 27.6 mmol/L 22.0-29.0 [facility] ([facility] CHRONIC KIDNEY DISEASE STAGING PER [...] YEARS EXCLUSIVE. Alt (SGPT) 13 U/L 0-41 [facility] CHRONIC KIDNEY DISEASE STAGING [...] INDIVIDUALA AGED 2-19 YEARS EXCLUSIVE. eGFR Non-Afr. [place] Islander 81 # MEDENT ([facility] [...] k g/m2 MEDGRAEME ([facility] [place] body weight 100 [lb_av] 100 [lb_av] MEDEN T ([facility] Body weight 96.50 [lb_av] 96.50 [lb_av] MEDENT ([facility] Body height 59.50 [in_i] 59.50 [in_i] MEDENT ([facility] 4'11.50" Respiratory rate 12 /min 12 /min MED[facility] ( [facility] Heart rate 54 /min 54 /min MED[facility] ([facility] Body temperature 98.4 [degF] 98.4 [degF] [facility] ([facility] Diastolic blood pressure 78 mm[Hg] 78 mm[Hg] [facility] ([facility] Systolic blood pressure 122 mm[Hg] 122 mm[Hg] M EDENT ([facility] Oxygen saturation in Arterial blood by Pulse oximetry 96 % 96 % [facility] ([facility] Body mass index (BMI) [Ratio] 18.5 kg/m2 18.5 k g/m2 [facility] ([facility] [place] body weight 100 [lb_av] 100 [lb_av] MEDEN T ([facility] Body weight 93.00 [lb_av] 93.00 [lb_av] [facility] ([facility] Body height 59.50 [in_i] 59.50 [in_i] MEDENT ([facility] 4'11.50" Respiratory rate 12 /min 12 /min [facility] ( [facility] Heart rate 72 /min 72 /min MED[facility] ([facility] Body temperature 98.4 [degF] 98.4 [degF] [facility] ([facility] Diastolic blood pressure 76 mm[Hg] 76 mm[Hg] [facility] ([facility] Systolic blood pressure 126 mm[Hg] 126 mm[Hg] M EDENT ([facility] Body mass index (BMI) [Ratio] 19.5 kg/m2 19.5 k g/m2 [facility] ([facility]) Body height 60 [in_i] 60 [in_i] [facility] ([facility], [facility]) 5'0" Body weight 100.00 [lb_av] 100.00 [lb_av] MEDEN T ([facility]) Body temperature 97.9 [degF] 97.9 [degF] [facility] ([facility]) Oxygen saturation in Arterial blood by Pulse oximetry 98 % 98 % [facility] ([facility]) Respiratory rate 17 /min 17 /min [facility] ( [facility]) Heart rate 76 /min 76 /min [facility] ([facility]) Diastolic blood pressure 86 mm[Hg] 86 mm[Hg] [facility] ([facility]) Systolic blood pressure 130 mm[Hg] 130 mm[Hg] M [facility] ([facility]) ID Date Data Source [id number] 12/18/2020 01:42:02 PM EST [facility] Name Value Range Interpretation Code Description Data Source(s) WEIGHT RECORDED 97.00 pounds 097.00 pounds [facility] Height 60 Inches 060 Inches [facility]
[2020-12-20 16:02] VITALS: BP 140/82
--- NOTE | 2020-12-20 16:23 | REP ---
INDICATION: head injury COMPARISON: None. TECHNIQUE: Axial noncontrast images from the skull base to the thoracic inlet with coronal reformations. This CT examination was performed using the following dose reduction techniques: Automated exposure control, adjustment of mA and/or kv according to the patient's size, and use of iterative reconstruction technique. FINDINGS: Age-related atrophy and microvascular ischemic changes are appreciated. The ventricles and sulci are symmetric. De La Rosa-white differentiation is maintained. There is no evidence for acute intracranial hemorrhage, mass/mass effect, pathology or infarction. No extra-axial fluid collection. Calvarium is intact. Paranasal sinuses and mastoid air cells are clear. IMPRESSION: Age related atrophy and microvascular ischemic changes. No acute intracranial hemorrhage, infarction, or mass/mass effect. No evidence for trauma/injury. <Electronically signed by Bradley Vasquez > 12/20/20 [id number]
--- NOTE | 2020-12-20 16:25 | REP ---
INDICATION: head injury COMPARISON: None. TECHNIQUE: Axial noncontrast images from the skull base to the thoracic inlet with coronal and sagittal re-formations This CT examination was performed using the following dose reduction techniques: Automated exposure control, adjustment of mA and/or kv according to the patient's size, and use of iterative reconstruction technique. FINDINGS: Moderate multilevel age-related changes include minimal endplate sclerosis with elements of disc space narrowing and marginal spurring/osteophyte formation. Normal alignment and lordosis is maintained. Cervical vertebral bodies including transverse processes and spinous processes are intact and there is no evidence for acute fracture / compression injury or subluxation. Spinal canal is patent. Posterior elements are intact. Paravertebral soft tissues are normal. IMPRESSION: Age-related multilevel degenerative changes. No evidence for acute pathology or trauma/injury. <Electronically signed by Bradley Vasquez > 12/20/20 [id number]
== END 2020-12-20 16:49 | disposition home or self-care (01) ==
LOC: M ED 14:57
DX: S00.93XA Contusion of unspecified part of head, initial encounter (principal); S00.81XA Abrasion of other part of head, initial encounter; W22.8XXA Striking against or struck by other objects, initial encounter; Y92.099 Unspecified place in other non-institutional residence as the place of occurrence of the external cause; Y93.9 Activity, unspecified; Y99.9 Unspecified external cause status; I10 Essential (primary) hypertension; E78.5 Hyperlipidemia, unspecified; E03.9 Hypothyroidism, unspecified; Z79.899 Other long term (current) drug therapy

== ENCOUNTER → 2024-03-12 | Outpatient (CLI) | payer MEDICARE, OTHER ==
[2024-03-12 13:26] LABS: ALBUMIN 3.8 G/DL (3.2-5.2); ALKALINE PHOSPHATASE 52 U/L (46-116); ALT/SGPT 22 U/L (7.0-40); AST/SGOT 23 U/L (<34); BILIRUBIN,TOTAL 0.7 MG/DL (0.3-1.2); BLOOD UREA NITROGEN 20 MG/DL (9-23); CALCIUM LEVEL 8.5 MG/DL (8.3-10.6); CARBON DIOXIDE LEVEL 33 MMOL/L (20-31); CHLORIDE LEVEL 105 MMOL/L (98-107); CHOLESTEROL LEVEL 184 MG/DL (<200); CHOLESTEROL RISK RATIO 2.36 (<5); GLOMERULAR FILTRATION RATE > 60.0 (>32); GLUCOSE, FASTING 97 MG/DL (74-106); HDL CHOLESTEROL 77.7 MG/DL (>40); LDL CHOLESTEROL 88.7 MG/DL (<100); NON-HDL-C 106.3 MG/DL; POTASSIUM SERUM 4.2 MMOL/L (3.5-5.1); SODIUM LEVEL 144 MMOL/L (136-145); TOTAL PROTEIN 6.7 G/DL (5.7-8.2); TRIGLYCERIDES LEVEL 88 MG/DL (<150)
== END ==
LOC: M WUC 09:20
PROVIDERS: ATTEND Internal Medicine
DX: E78.5 Hyperlipidemia, unspecified (principal); E03.9 Hypothyroidism, unspecified; M81.0 Age-related osteoporosis without current pathological fracture

== ENCOUNTER → 2024-09-01 | Outpatient (CLI) | payer MEDICARE, OTHER | LOC: M WUC 11:11 | PROVIDERS: ATTEND Internal Medicine | DX: M79.672 Pain in left foot (principal) ==